=== PATIENT | male | born 1960 | race Caucasian/White ===

== ENCOUNTER 2020-01-27 06:27 | Day surgery (SDC) | payer BC, MEDICAID ==
[2020-01-27] MEDS ORDERED: Ondansetron 4 MG/2 ML SDV IVPUSH ONE (06:28)
[2020-01-27] MEDS ORDERED: Propofol 200 MG/20 ML SDV IV ONE (06:28)
[2020-01-27] MEDS ORDERED: fentaNYL 100 MCG/2 ML SDV IV ONE (06:28)
[2020-01-27] MEDS ORDERED: Ketorolac 30 MG/ML SDV IVPUSH ONE (06:28)
[2020-01-27] MEDS ORDERED: Midazolam 1 MG/ML 2 ML SDV IV ONE (06:28)
[2020-01-27] MEDS ORDERED: Lactated Ringers 1,000 ML IV SCH (06:30)
[2020-01-27] MEDS ORDERED: Sodium Chloride 0.9% 10 ML Syringe FLUSH PRN (06:30)
[2020-01-27] MEDS ORDERED: ceFAZolin 1 GM Vial IVPUSH ONE (07:30)
[2020-01-27] MEDS ORDERED: ceFAZolin 1 GM in Sodium Chloride 0.9% 50 ML IV ONE (07:30)
[2020-01-27] MEDS ORDERED: Lidocaine 1% with EPINEPHrine 1:100,000 20 ML MDV INJECT ONE (08:28)
[2020-01-27] MEDS ORDERED: Bupivacaine 0.5% 30 ML SDV INJECT ONE (08:28)
--- NOTE | 2020-01-27 09:13 | PCM.OPNOTE ---
- General Post-Op/Procedure Note Date of Surgery/Procedure: 01/27/20 Operative Procedure(s): rih repair with mesh Findings: indirect rih Pre Op Diagnosis: inguinal hernia without obstruction or gangrene. Post-Op Diagnosis: Same Anesthesia Technique: General LMA, Local (8 ml 1 % lido with epi/0.5% buvipicaine) Primary Surgeon: Jeronimo Burrell Anesthesia Provider: Almas Hernandes EBL in mLs: 20 Complications: None Condition: Good Free Text/Narrative:: see dictation
[2020-01-27] MEDS ORDERED: Acetaminophen/HYDROcodone 325-5 MG Tab PO PRN (09:15)
--- NOTE | 2020-01-27 13:41 | OR ---
DATE OF OPERATION: 01/27/2020 SURGEON: Jeronimo Burrell MD PROCEDURE PERFORMED: Right inguinal hernia repair. PREOPERATIVE DIAGNOSIS: Right inguinal hernia without obstruction or gangrene. POSTOPERATIVE DIAGNOSIS: Right inguinal hernia without obstruction or gangrene. INDICATIONS FOR PROCEDURE: This is a 59-year-old white male who presented with a reducible inguinal hernia. He was offered and accepted repair. INTRAOPERATIVE FINDINGS: As follows: He has an indirect hernia which was repaired with a Phasix plug and patch, reference number [id number], lot number [id number] with an expiration date of 08/06/2021. OptiFix fixation system was also used, reference number [id number], lot number [id number] with an expiration date of 08/06/2021. A total of 8 mL of 1:1 mixture of 1% lidocaine with epinephrine and 0.5% bupivacaine was used. DESCRIPTION OF OPERATION: After an excellent general anesthetic was administered via the LMA, the patient was prepped and draped in usual sterile manner. We infiltrated our planned incision site with our local mixture, as well as a site just lateral to the anterior-superior iliac spine, by raising a skin wheal and doing a deep intramuscular injection to get the genitofemoral and ilioinguinal nerve. Our incision was then made, which essentially was 5 cm in length with an intercept point half-way between the anterior-superior iliac spine and the symphysis pubis along the inguinal ligament. The underlying subcu fat was divided using electrocautery. Superficial inferior epigastric vessels were clamped, divided, and tied with 2-0 Vicryl ties. The aponeurosis of the external oblique was exposed. More local was injected under the aponeurosis. A casimiro was made in the aponeurosis and carried out through the external ring. The cord was then mobilized and controlled with a 1 inch Edison drain. The ilioinguinal nerve was identified and kept safe during the operative procedure. This cord was then skeletonized. A cord lipoma as well as indirect hernia sac were identified. The lipoma was excised, passed off the field. It was not submitted for pathology. The hernia itself was reduced. The large plug was then inserted into the defect and tacked into position with 2-0 Vicryl. The overlay mesh was then cut to size with an appropriate vertical keyhole, placed on the floor of the inguinal canal, and tacked and sewn into position with a running 2-0 Vicryl at the base along the inguinal ligament. The keyhole itself was closed with additional 2-0 Vicryl, and the OptiFix was used to fix the mesh to the floor of the canal. The area was irrigated. The aponeurosis was closed with a running 3-0 Vicryl, 3-0 Vicryl was used to close Antionette's fascia, and venita were used to close the skin. Needle, sponge, and instrument counts were reported as correct. The patient tolerated the procedure well, was taken to Recovery in good condition. /[id number] /MODL
== END 2020-01-27 10:25 | disposition home or self-care (01) ==
LOC: FB.SDS 06:27
PROVIDERS: ATTEND Surgery
DX: K40.90 Unilateral inguinal hernia, without obstruction or gangrene, not specified as recurrent (principal); D17.6 Benign lipomatous neoplasm of spermatic cord; F32.9 Major depressive disorder, single episode, unspecified; F17.210 Nicotine dependence, cigarettes, uncomplicated; Z01.812 Encounter for preprocedural laboratory examination; Z20.828 Contact with and (suspected) exposure to other viral communicable diseases
CPT/HCPCS: 00830; 49505; 87635; 94150; A9270; C1713; C1781; J0690; J1885; J2250; J2405; J2704; J3010; J3490; J7120; U0002